=== PATIENT | female | born 1960 | race Caucasian/White ===

== ENCOUNTER 2016-12-14 04:22 | Emergency (ER) | payer MEDICAID ==
[~2016-12-14] VITALS: Ht 175.3 cm; Wt 81.1 kg
[2016-12-14] MEDS ORDERED: HYDROcodone/APAP 5/325 TABLET PO ONE (05:00)
[2016-12-14] MEDS ORDERED: HYDROcodone/APAP 5/325 TABLET ONE (05:05)
[2016-12-14 05:48] VITALS: BP 190/100
== END 2016-12-14 05:52 | disposition home or self-care (01) ==
LOC: ED 05:46
DX: K02.9 Dental caries, unspecified (principal); H60.501 Unspecified acute noninfective otitis externa, right ear
CPT/HCPCS: 93005; 99283